=== PATIENT | female | born 1995 | race African-American/Black ===

== ENCOUNTER 2017-04-18 14:09 | Emergency (ER) | payer MEDICAID ==
[~2017-04-18] VITALS: Ht 165.1 cm; Wt 66.0 kg
[2017-04-18 14:45] VITALS: BP 121/75
[2017-04-18] MEDS ORDERED: IBUPROFEN 400MG TABLET PO ONE (14:45)
[2017-04-18] MEDS ORDERED: ACETAMINOPHEN 500MG TABLET PO ONE (14:45)
== END 2017-04-18 16:32 | disposition home or self-care (01) ==
LOC: ER 14:41
DX: S62.366A Nondisplaced fracture of neck of fifth metacarpal bone, right hand, initial encounter for closed fracture (principal); F12.10 Cannabis abuse, uncomplicated; Z88.3 Allergy status to other anti-infective agents; W22.01XA Walked into wall, initial encounter; Y93.89 Activity, other specified; Y92.018 Other place in single-family (private) house as the place of occurrence of the external cause
CPT/HCPCS: 29125; 73130; 81025; 99284

== ENCOUNTER 2019-02-23 23:22 | Emergency (ER) | payer MEDICAID ==
[~2019-02-23] VITALS: Ht 165.1 cm; Wt 66.0 kg
[2019-02-24] MEDS ORDERED: HYDROCODONE/ACETAMINOPHEN 5/325MG TABLET PO ONE (01:30)
[2019-02-24 03:38] VITALS: BP 103/65
== END 2019-02-24 03:40 | disposition home or self-care (01) ==
LOC: ER 23:22
DX: M79.671 Pain in right foot (principal); W01.0XXA Fall on same level from slipping, tripping and stumbling without subsequent striking against object, initial encounter; Y93.89 Activity, other specified; Y92.9 Unspecified place or not applicable; Z88.3 Allergy status to other anti-infective agents; Z98.890 Other specified postprocedural states
CPT/HCPCS: 73630; 81025; 99283

== ENCOUNTER 2019-07-31 14:00 | Emergency (ER) | payer MEDICAID ==
[~2019-07-31] VITALS: Ht 170.2 cm; Wt 65.0 kg
[2019-07-31] MEDS ORDERED: BACITRACIN ZINC OINT UDPKT TOP ONE (14:30)
[2019-07-31] MEDS ORDERED: TETANUS, DIPHTHERIA, PERTUSSIS VAC/PF 0.5ML (>7YR OLD) IM ONE (14:30)
[2019-07-31] MEDS ORDERED: IBUPROFEN 600MG TABLET PO ONE (14:30)
[2019-07-31 17:20] VITALS: BP 111/77
== END 2019-07-31 19:36 | disposition home or self-care (01) ==
LOC: ER 14:13
DX: S01.81XA Laceration without foreign body of other part of head, initial encounter (principal); S09.90XA Unspecified injury of head, initial encounter; M54.2 Cervicalgia; J45.909 Unspecified asthma, uncomplicated; F12.10 Cannabis abuse, uncomplicated; Z98.890 Other specified postprocedural states; Z88.1 Allergy status to other antibiotic agents; V89.2XXA Person injured in unspecified motor-vehicle accident, traffic, initial encounter; Y93.89 Activity, other specified; Y92.89 Other specified places as the place of occurrence of the external cause; Y99.8 Other external cause status
CPT/HCPCS: 71045; 72070; 81025; 90471; 90715; 99285; L0172

== ENCOUNTER 2024-01-15 06:48 | Emergency (ER) | payer MEDICAID ==
[~2024-01-15] VITALS: Ht 165.1 cm; Wt 58.0 kg
[2024-01-15 07:00] VITALS: BP 124/47; PULSE 52; RESP 16; TEMP 98.7; O2SAT 100
[2024-01-15] MEDS: ONDANSETRON 4MG ODT PO ONE (07:15)
[2024-01-15 07:26] LABS: BASOPHILS % 0.4 % (0.0-2.0); LYMPHOCYTES % 16.3 % (20.0-50.0); MEAN CORPUSCULAR HEMOGLOBIN 28.8 pg (28.0-32.0); MEAN CORPUSCULAR HGB CONC 32.4 g/dL (31.0-37.0); MEAN CORPUSCULAR VOLUME 88.9 fL (81.0-99.0); MEAN PLATELET VOLUME 8.9 fl (7.4-10.4); MONOCYTES % 10.6 % (2.0-8.0); NEUTROPHILS % 72.7 % (40.0-76.0); PLATELET 222 x1000/uL (130-400); RED BLOOD CELL COUNT 4.17 mill/uL (4.2-5.4); RED CELL DISTRIBUTION WIDTH 12.8 % (11.6-14.6); WHITE BLOOD COUNT 10.2 x1000/uL (4.5-11.0)
[2024-01-15 07:34] LABS: CHLORIDE 108 mEq/L (98-107); POTASSIUM 3.7 mEq/L (3.5-5.1); SODIUM 139 mEq/L (136-145)
[2024-01-15 07:35] LABS: CALCIUM 9.9 mg/dL (8.7-10.4); CARBON DIOXIDE 24 mEq/L (21-32)
[2024-01-15 07:40] LABS: CREATININE 0.9 mg/dL (0.6-1.0); GLUCOSE 164 mg/dL (70-105); UREA NITROGEN BLOOD 8 mg/dL (9-23)
[2024-01-15 07:42] LABS: ALANINE AMINOTRANSFERASE 25 IU/L (10-49); ALBUMIN 4.7 g/dL (3.2-4.8); ASPARTATE AMINOTRANSFERASE 33 IU/L (<34); BILIRUBIN TOTAL 0.4 mg/dL (0.1-1.0); PROTEIN TOTAL 7.3 g/dL (6.0-8.3)
[2024-01-15 07:44] LABS: ETHANOL BLOOD < 10 mg/dL (<10)
[2024-01-15 08:13] LABS: CLARITY URINE CLOUDY (CLEAR); COLOR URINE YELLOW (YELLOW); GLUCOSE URINE NEGATIVE (NEGATIVE); KETONES URINE 3+ (NEGATIVE); LEUKOCYTE ESTERASE URINE NEGATIVE (NEGATIVE); NITRITE URINE NEGATIVE (NEGATIVE); OCCULT BLOOD URINE TRACE (NEGATIVE); PH URINE 5.5 (4.5-8.0); PROTEIN URINE 2+ (NEGATIVE); SPECIFIC GRAVITY URINE 1.035 (1.005-1.030)
[2024-01-15] MEDS: HALOPERIDOL LACTATE 5MG/ML VIAL IM ONE (08:30)
[2024-01-15] MEDS: SODIUM CHLORIDE 0.9% 1,000 ML IV ONE (08:30)
[2024-01-15 08:33] LABS: MUCUS URINE TRACE /lpf (< = 2+); SQUAMOUS EPITHELIAL CELL URINE 3+ /lpf (RARE/1+)
[2024-01-15 08:34] LABS: BACTERIA URINE 2+; WBC URINE 0-2 /hpf (0-2)
[2024-01-15 08:39] LABS: *AMPHETAMINES SCREEN URINE NEGATIVE (NEGATIVE); *BARBITURATES SCREEN URINE NEGATIVE (NEGATIVE); *BENZODIAZEPINES SCREEN URINE NEGATIVE (NEGATIVE); *COCAINE SCREEN URINE NEGATIVE (NEGATIVE); CANNABINOID URINE SCREEN PRESUMPTIVE POSITIVE (NEGATIVE); ECSTASY MDMA SCREEN URINE NEGATIVE (NEGATIVE); METHADONE URINE SCREEN NEGATIVE (NEGATIVE); OPIATES URINE SCREEN NEGATIVE (NEGATIVE); PHENCYCLIDINE URINE SCREEN NEGATIVE (NEGATIVE)
== END 2024-01-15 11:48 | disposition home or self-care (01) ==
LOC: ER 06:48
DX: R11.2 Nausea with vomiting, unspecified (principal); F12.90 Cannabis use, unspecified, uncomplicated; Z98.890 Other specified postprocedural states; Z88.1 Allergy status to other antibiotic agents
CPT/HCPCS: 80053; 80305; 81003; 81025; 80320; 83690; 85025; 36415; 96361; 96374; 99283; Q0162; J1630; J7030; Z7610 ×3; G0480

== ENCOUNTER 2024-02-05 12:52 | Emergency (ER) | payer MEDICAID ==
[~2024-02-05] VITALS: Ht 165.1 cm; Wt 60.0 kg
[2024-02-05 12:57] VITALS: O2SAT 100
[2024-02-05 13:26] LABS: BASOPHILS % 0.4 % (0.0-2.0); HEMOGLOBIN. 12.2 g/dL (12.0-16.0); LYMPHOCYTES % 12.7 % (20.0-50.0); MEAN CORPUSCULAR HGB CONC 32.9 g/dL (31.0-37.0); MEAN CORPUSCULAR VOLUME 88.3 fL (81.0-99.0); MEAN PLATELET VOLUME 8.7 fl (7.4-10.4); MONOCYTES % 4.7 % (2.0-8.0); NEUTROPHILS % 82.2 % (40.0-76.0); PLATELET 214 x1000/uL (130-400); RED BLOOD CELL COUNT 4.19 mill/uL (4.2-5.4); RED CELL DISTRIBUTION WIDTH 12.9 % (11.6-14.6); WHITE BLOOD COUNT 10.7 x1000/uL (4.5-11.0)
[2024-02-05 13:42] LABS: CHLORIDE 107 mEq/L (98-107); POTASSIUM 4.2 mEq/L (3.5-5.1); SODIUM 139 mEq/L (136-145)
[2024-02-05 13:43] LABS: CARBON DIOXIDE 23 mEq/L (21-32)
[2024-02-05 13:48] LABS: GLUCOSE 101 mg/dL (70-105); UREA NITROGEN BLOOD 13 mg/dL (9-23)
[2024-02-05 13:50] LABS: ALANINE AMINOTRANSFERASE 65 IU/L (10-49); ALBUMIN 4.9 g/dL (3.2-4.8); ASPARTATE AMINOTRANSFERASE 103 IU/L (<34); BILIRUBIN DIRECT 0.1 mg/dL (<=3.0)
[2024-02-05 13:51] LABS: BILIRUBIN TOTAL 0.3 mg/dL (0.1-1.0); PROTEIN TOTAL 7.7 g/dL (6.0-8.3)
[2024-02-05 16:15] LABS: HCG SCREEN NEGATIVE
[2024-02-05] MEDS: SODIUM CHLORIDE 0.9% 1,000 ML IV ONE (16:15)
[2024-02-05] MEDS: ONDANSETRON HCL 4MG/2ML INJ IV ONE (16:32)
[2024-02-05] MEDS: DICYCLOMINE HCL 10MG/ML 2ML VIAL IM ONE (16:32)
[2024-02-05] MEDS ORDERED: ONDA4TAB50 MT (17:41)
[2024-02-05 18:00] VITALS: BP 108/63; PULSE 79; RESP 17; TEMP 36.94740; O2SAT 99
== END 2024-02-05 18:55 | disposition home or self-care (01) ==
LOC: ER 12:59
DX: R11.2 Nausea with vomiting, unspecified (principal); F10.129 Alcohol abuse with intoxication, unspecified; E86.0 Dehydration; J45.909 Unspecified asthma, uncomplicated; F12.10 Cannabis abuse, uncomplicated; Y90.9 Presence of alcohol in blood, level not specified
CPT/HCPCS: 80076; 80048; 84703; 83690; 85025; 36415; 96361; 96372; 96374; 99284; J0500; J2405; J7030; Z7610